=== PATIENT | female | born 1960 | race Caucasian/White ===

== ENCOUNTER 2017-12-29 13:49 | Emergency (ER) | payer BC, OTHER ==
[2017-12-29 13:58] VITALS: BP 153/86
--- NOTE | 2017-12-29 14:29 | UC ---
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 While dentist was numbing patient with a needle, patient had sudden movement, causing dentist to swing arm backward and swipe patient's L thigh w needle. There was no bleeding of patient's skin. She has a small abrasion on the area. The dental patient was a 15 year old girl with no known medical problems. Patient has no concerns that the source patient may have Hepatitis or HIV. Source patient also unavailable for blood testing. Patient denies significant PMH. States all vaccinations are UTD, including tetanus. family hx non-contributory - History Of Current Complaint Chief Complaint: UCBodyFluidExposure Stated Complaint: NEEDLESTICK Time Seen by Provider: 12/29/17 14:02 Hx Obtained From: Patient Pain Intensity: 2 - Allergies/Home Medications Allergies/Adverse Reactions: Allergies Allergy/AdvReac Type Severity Reaction Status Date / Time iodine Allergy Rash Verified 12/29/17 13:51 latex Allergy Rash Verified 12/29/17 13:51 Penicillins Allergy Hives Verified 12/29/17 13:52 pregabalin [From Lyrica] Allergy Rash Verified 12/29/17 13:52 PMH/Surg Hx/FS Hx/Imm Hx - Additional Past Medical History Additional PMH: none - Surgical History Surgical History: Yes Surgery Procedure, Year, and Place: THYROID FNA, 09/30/11, [facility]. Tubal ligation. Ganglion cyst removed from left wrist. Cholecystectomy - Social History Alcohol Use: Occasionally Substance Use Type: None Smoking Status (MU): Never Smoked Tobacco Review of Systems All Other Systems Reviewed And Are Negative: Yes Physical Exam Triage Information Reviewed: Yes Appearance: Well-Appearing, No Pain Distress, Well-Nourished Vital Signs: Initial Vital Signs Temp 98 F 12/29/17 13:55 Pulse 76 12/29/17 13:55 Resp 15 12/29/17 13:55 BP 153/86 12/29/17 13:55 Pulse Ox 100 12/29/17 13:55 Vital Signs Reviewed: Yes Eyes: Positive: Conjunctiva Clear Respiratory: Positive: No respiratory distress, No accessory muscle use Skin: Positive: Other - <1mm abrasion on anterior L thigh. no bleeding Laceration Course/Dx - Course/Dx Course Of Treatment: presenting for "needle stick." VERY low risk of transmission of hepatitis or HIV given pediatric source patient w no known pmh, no breakage of skin. patient decline tetanus b/c vaccines UTD. declines HIV or hepatitis test for herself for lack of utility. source patient testing unavailable. she declined PEP - Differential Dx - Laceration/Wound Differental Diagnoses: Abrasion Provider Diagnoses: abrasion Discharge - Sign-Out/Discharge Documenting (check all that apply): Patient Departure All imaging exams completed and their final reports reviewed: No Studies - Discharge Plan Condition: Stable Disposition: HOME Patient Education Materials: Needle Stick Injuries (ED) Referrals: Piedad Chavez MD [Primary Care Provider] - - Billing Disposition and Condition Condition: STABLE Disposition: Home
== END 2017-12-29 14:38 | disposition home or self-care (01) ==
LOC: UCEAST 13:49
DX: S70.312A Abrasion, left thigh, initial encounter (principal); W46.1XXA Contact with contaminated hypodermic needle, initial encounter; Y93.F9 Activity, other caregiving; Y92.531 Health care provider office as the place of occurrence of the external cause; Z88.0 Allergy status to penicillin; Z88.8 Allergy status to other drugs, medicaments and biological substances; Z91.040 Latex allergy status
CPT/HCPCS: 99212; G0463

== ENCOUNTER → 2018-05-05 06:53 | Day surgery (SDC) | payer BC ==
--- NOTE | 2018-04-14 07:33 | HP ---
PREOPERATIVE HISTORY AND PHYSICAL: DATE OF ADMISSION/SURGERY: 05/05/18 ATTENDING PHYSICIAN: Tracy Childers MD * (DICTATED BY TOM PEREZ) CHIEF COMPLAINT: Carpal tunnel syndrome, bilateral, right worse than left. HISTORY OF PRESENT ILLNESS: Davis is a 57-year-old right-hand dominant female who has had a few years of complaints of pain and numbness in the median nerve distribution in both upper extremities. She has tried night splints for some time, but her symptoms have not totally regressed. She underwent bilateral EMG nerve conduction studies, which reveal bilateral carpal tunnel syndrome. She was given option of surgical release of the carpal tunnel bilaterally, the right being first, and she elects to proceed. She is scheduled for right carpal tunnel release with Dr. Childers on 05/05/18. PAST MEDICAL HISTORY: Significant for: 1. TMJ syndrome. 2. Thyroid nodule. 3. Asthma. 4. Colon polyp. 5. Questionable hypothyroidism. 6. Benign thyroid nodule. 7. Multiple environmental and food allergies. PAST SURGICAL HISTORY: 1. Tubal ligation. 2. Cholecystectomy. 3. Ganglion cyst excision in her left wrist x2. CURRENT MEDICATIONS: 1. She has an EpiPen as needed for allergies. 2. Ventolin inhaler. 3. Flonase Allergy intranasal spray twice daily. 4. Dulera 2 puffs twice daily. 5. Vitamin D daily. 6. Lisinopril 10 mg 1 p.o. daily. ALLERGIES: PENICILLIN with which she has hives, LYRICA, hives; LATEX, asthmatic reaction; CONTRAST DYE, hives; IODINE, SHRIMP, CHICKPEAS, BANANA, and AVOCADO for food allergies. FAMILY HISTORY: Noncontributory. SOCIAL HISTORY: Lives with her . 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 She does not smoke. No previous history of smoking. Does not drink alcohol. REVIEW OF SYSTEMS: A 14-point review of systems reviewed, positive just for runny nose secondary to environmental allergies. PHYSICAL EXAMINATION GENERAL: The patient is alert and oriented x3, no acute distress, pleasant, cooperative, appropriate mood and affect. VITAL SIGNS: Height 66.5 inches tall, weight 161. Pulse 82, BP 122/82. HEENT: PERRLA. LUNGS: Clear to auscultation without wheezes auscultated. HEART: Regular rate and rhythm. No murmur auscultated. ABDOMEN: Soft, nontender, nondistended. Normoactive bowel sounds x4 quadrants. PELVIC: Exam deferred to primary. MUSCULOSKELETAL: The patient has decreased sensation in the median nerve distribution with Tinel's and Phalen's testing. There is no gross thenar or hypothenar atrophy noted in either upper extremity. IMPRESSION: Bilateral carpal tunnel syndrome, right worse than left. PLAN: The patient has elected to proceed with right carpal tunnel release on an outpatient basis with Dr. rTacy Childers, scheduled for 05/05/18. Risks and benefits of the procedure were fully discussed with the patient today at her visit on 04/12/18. She will follow up in the office in 10 to 14 days postoperatively. TOM PEREZ [id number]/[facility]PS #: [id number] MTDD
[~2018-05-05 06:53] MED LIST: Acetaminophen TAB* 325 MG PO PRN; Buffered Lidocaine 1% SYRIN* 1 ML/SYRINGE INTRADERM ONE; Lactated Ringers 1000 ML Bag* 1,000 ML IV SCH; Lidocaine 1% INJ* 10 MG/ML 30 ML SDV ONE; Lidocaine 2% PF * 5 ML VIAL ONE; Midazolam* 1 MG/ML 2 ML VIAL (2 MG) ONE; Naloxone* 0.4 MG/ML 1 ML VIAL IV PRN; Ondansetron INJ* 2 MG/ML VIAL IV PRN; fentaNYL* 50 MCG/ML 2 ML VIAL (100 MCG VIAL) IV PRN; oxyCODONE TAB* 5 MG TAB PO PRN
[2018-05-05 10:01] VITALS: BP 125/74
--- NOTE | 2018-05-05 10:17 | OP ---
DATE OF OPERATION: 05/05/18 - [facility] DATE OF : 64 SURGEON: Tracy Childers MD. EXPERIMENTAL TECHNICIAN: TOM Simmons ANESTHESIA: Local MAC. PRE-OP DIAGNOSIS: Right carpal tunnel syndrome. POST-OP DIAGNOSIS: Right carpal tunnel syndrome. OPERATIVE PROCEDURE: Right carpal tunnel release. ESTIMATED BLOOD LOSS: Zero. TOURNIQUET TIME: Approximately 8 minutes. INDICATIONS FOR PROCEDURE: Davis is a 57-year-old woman with numbness and tingling in the median nerve distribution of her right hand. She presents for right carpal tunnel release. DESCRIPTION OF PROCEDURE: The patient was brought to the operating room, was given a sedation anesthetic and a local infiltration of 10 cc of 1% plain lidocaine in the palm of her right hand. The skin of the right hand and forearm were prepped and draped in the usual sterile fashion. The hand and forearm were exsanguinated and the tourniquet elevated to 250 mmHg. A longitudinal incision was made in the palm in line with the ring finger. We dissected through the subcutaneous tissue down to the transverse carpal ligament. The ligament was divided sharply with the knife and then more proximally with the scissors. Nerve was dissected free from the surrounding tissue and there was an area of moderate compression at the mid portion of the ligament. The wound was irrigated and the skin edges were reapproximated with 4-0 nylon suture. The wound was dressed with Xeroform, 4x4, Webril, and an Husam wrap. The patient tolerated the procedure well and was brought to the recovery room in good condition. [id number]/[facility] #: [id number] [facility] SHOREAbilio
== END | disposition home or self-care (01) ==
LOC: OR 06:53
PROVIDERS: ATTEND Orthopaedic Surgery
DX: G56.01 Carpal tunnel syndrome, right upper limb (principal); J45.909 Unspecified asthma, uncomplicated; E04.1 Nontoxic single thyroid nodule; I10 Essential (primary) hypertension
CPT/HCPCS: J2250